=== PATIENT | female | born 1960 | race Two or more races ===

== ENCOUNTER → 2018-03-12 | Outpatient (CLI) | payer OTHER ==
[~2018-03-12] MED LIST: CYMBALTA30 MG PO; ESTAZOLAM1 MG PO; SYNTHROID125 MCG PO; TRANXENE T-TA3.75 MG PO
== END | disposition home or self-care (01) ==
LOC: NUCLEAR 10:22
DX: M85.80 Other specified disorders of bone density and structure, unspecified site (principal)

== ENCOUNTER 2018-07-22 09:07 | Outpatient (CLI) | payer OTHER | END 2018-07-22 09:16 | disposition home or self-care (01) | LOC: TOM 09:07 | DX: R10.84 Generalized abdominal pain (principal) ==

== ENCOUNTER → 2025-01-09 | Emergency (ER) | payer OTHER ==
[~2025-01-09] VITALS: Ht 157.5 cm; Wt 65.3 kg
== END | disposition left against medical advice (07) ==
LOC: ER 11:04
DX: Z53.21 Procedure and treatment not carried out due to patient leaving prior to being seen by health care provider (principal)